=== PATIENT | male | born 1970 | race African-American/Black ===

== ENCOUNTER 2022-11-19 14:26 | Emergency (ER) | payer OTHER ==
[~2022-11-19] VITALS: Ht 182.9 cm; Wt 82.0 kg
[2022-11-19 14:29] VITALS: BP 152/108
[2022-11-19] MEDS ORDERED: SODIUM CHLORIDE 0.9% 1,000 ML IV ONE (15:30)
== END 2022-11-19 16:15 | disposition left against medical advice (07) ==
LOC: ER 14:26
DX: G40.909 Epilepsy, unspecified, not intractable, without status epilepticus (principal); R00.0 Tachycardia, unspecified
CPT/HCPCS: 70450; 71045; 93005; 99285; J7030